=== PATIENT | female | born 1950 | race Caucasian/White ===

== ENCOUNTER → 2016-07-08 | Day surgery (SDC) | payer OTHER ==
[~2016-07-08] MED LIST: BUPIVACAINE HCL PF 0.25% 30 ML VIAL ONE; KETOROLAC TROMETHAMINE 30 MG/ML (IVP) VIAL IV PUSH ONE; LACTATED RINGER'S 1000 ML INJ 1,000 ML ONE; MIDAZOLAM HCL 2 MG/2 ML VIAL ONE; ONDANSETRON HCL 4 MG/2 ML VIAL IV PUSH ONE; PROPOFOL 200 MG/20 ML AMP IV ONE; ceFAZolin 2 GM PREMIX 50 ML ONE
--- NOTE | 2016-07-08 22:12 | MP ---
cc: CYRUS DOLL DP DATE OF SURGERY: 07/08/2016 PREOPERATIVE DIAGNOSIS: Right third digit hammertoe with metatarsalgia. POSTOPERATIVE DIAGNOSIS: Right third digit hammertoe with metatarsalgia. OPERATION: Right third digit PIPJ fusion. Third metatarsal osteotomy MATERIALS USED x1 2.0 [employer] screw, x1 0.045 K-wire. ESTIMATED BLOOD LOSS Less than 30 mL SPECIMEN None COMPLICATIONS None ANESTHESIA General with local approximately 15 cc of 0.25% Marcaine plain TOURNIQUET TIME 22 minutes at a setting of 215 mmHg. PLAN OF ACTIVITY: PACU then DC home once stable per same-day surgery criteria. JUSTIFICATION FOR PROCEDURE: The patient is a 66-year-old female who sustained injury which unfortunately left the third digit laterally deviated. 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 This is causing advancing of the hammertoe upon ambulating and within shoe gear. We devised a plan to move forward with decompression of the joint, rotational osteotomy and third metatarsal head as well as PIPJ fusion to stabilize hammertoe deformity. No guarantees were given or implied regarding the outcome. The patient understood there is a likely chance of chronic swelling, numbness, and a lesser chance of return of deformity, need for more surgery at a later date. No guarantees were given or implied regarding the outcome. PROCEDURE IN DETAIL Under mild sedation the patient was brought to the operating room, placed in supine position. Following the induction of general anesthesia, local anesthesia was obtained about the right forefoot utilizing standard block fashion. The right foot was then scrubbed, prepped and draped in the usual aseptic fashion. The foot was elevated, exsanguinated, and the previously placed right mid calf tourniquet was inflated 215 mmHg. Focus was at the right third digit. It was noted to be laterally deviated with the PIPJ contracture. A linear incision was made over the dorsal aspect of the PIPJ with a slight curvilinear at the level of third MPJ. Sharp and blunt dissection was carried down through epidermis, the dermis, venous structures that were encountered were bovied and ligated as deemed necessary. Sharp and blunt dissection was down to the level of the extensor digitorum longus tendon and the sling wing apparatus. A linear incision was made releasing the sling wing apparatus. A linear incision was made, deep tendon lengthening approach at the level of the extensor digitorum longus. Reflection took place down to the level of the third MPJ. A linear incision was made at the capsule, tight lateral collateral ligaments were severed utilizing a 15 blade. Next the third metatarsal osteotomy took place. The third metatarsal dorsal distal to plantar proximal capital fragment was transposed proximal and laterally approximately 2 mm and fixated utilizing proper AO technique utilizing a 2.0 Razmir 12-mm screw. The redundant dorsal shelf was then transected to a smooth articular surface. There was noted to be stability across the osteotomy site. Next utilizing power instrumentation the head of the proximal phalanx at the base of the middle phalanx was resected and prepared for arthrodesis. A wire was then placed through the middle phalanx, to the distal phalanx, and retrograded back across the proximal phalanx stopping just short of the third MPJ, securing the hammertoe fixation. X-rays took place. There was noted to be good triplane alignment. The wound was flushed with copious amounts of normal saline. The extensor digitorum longus tendon was then loosely coapted under physiologic tension utilizing 3-0 Monocryl. The deep dermis was closed utilizing 4-0 Monocryl. Skin was closed utilizing nylon. Upon relieving the tourniquet there was a prompt hyperemic response to all digits without any delayed capillary fill time, a bulky bandage placed. The patient transferred from OR to PACU with all vital signs stable. The patient is heel-weightbear. She will ice, elevate. She will follow up within 3-5 days. GENA Luke /3:22 PM /9:29 PM
== END | disposition home or self-care (01) ==
LOC: ESDC 12:38
PROVIDERS: ATTEND Podiatrist Foot & Ankle Surgery
DX: M20.41 Other hammer toe(s) (acquired), right foot (principal); M77.41 Metatarsalgia, right foot; E11.9 Type 2 diabetes mellitus without complications; Z79.84 Long term (current) use of oral hypoglycemic drugs
CPT/HCPCS: 01480; 28285; 28308; 73620; 76000; 82948; C1713; J0690; J1885; J2250; J2405; J3010; J7120